=== PATIENT | female | born 1985 | race Caucasian/White ===

== ENCOUNTER → 2017-07-10 | Outpatient (CLI) | payer BC ==
[~2017-07-10] VITALS: Ht 167.6 cm; Wt 69.0 kg
[~2017-07-10] MED LIST: ENDOCET 5-3251 EACH PO; Motrin PO; PREDNISONE20 MG PO; PREFERA-OB P1 TABLET PO; VALACYCLOVIR1000 MG PO
[2017-07-10 17:41] VITALS: BP 121/68
== END | disposition home or self-care (01) ==
LOC: IVINF 15:46
DX: Z31.82 Encounter for Rh incompatibility status (principal); Z3A.28 28 weeks gestation of pregnancy
CPT/HCPCS: 96372; J2790

== ENCOUNTER 2017-10-01 21:50 | Inpatient (IN) | payer BC ==
[~2017-10-01] VITALS: Ht 162.6 cm; Wt 74.0 kg
[2017-10-01 22:13] VITALS: BP 120/81
[2017-10-01 23:33] VITALS: BP 115/77
[2017-10-02] VITALS (18 sets, daily range): BP systolic 105–137; BP diastolic 58–94
[2017-10-02 01:02] LABS: EOSINOPHIL (%) 0.5 % (0-5); EOSINOPHIL COUNT 0.1 K/uL (0-0.3); HEMATOCRIT 36.2 % (36.0-46.0); IMMATURE GRANULOCYTE (%) 0.4 % (0.0-0.7); IMMATURE GRANULOCYTE COUNT 0.1 K/uL; INSTRUMENT ABS NEUTROPHIL CT 10.7 K/uL; LYMPHOCYTE COUNT 1.9 K/uL (1.0-2.8); MCH 33.3 PG (29.0-34.0); MCHC 34.8 G/DL (30.0-36.0); MCV 95.8 FL (83-99); MEAN PLAT.VOLUME 11.3 uM^3 (9.5-12.4); MONOCYTE (%) 9.1 % (3-12); MONOCYTE COUNT 1.3 K/uL (0-0.8); NEUTROPHIL (%) 76.3 % (45-76); NEUTROPHIL COUNT 10.7 K/uL (1.8-6.4); PLATELET COUNT 153 K/uL (156-360); RBC DIS.WIDTH-CV 12.8 % (11.8-14.6); RBC DIS.WIDTH-SD 44.6 % (39-53); RED BLOOD COUNT 3.78 M/uL (3.80-5.20); WHITE BLOOD COUNT 14.1 K/uL (4.1-10.2)
[2017-10-02] MEDS ORDERED: IBUPROFEN800 MG PO (05:17)
[2017-10-03 14:53] VITALS: BP 120/69
[2017-10-04 06:55] VITALS: BP 104/53
[2017-10-04 14:35] VITALS: BP 98/55
== END 2017-10-04 18:25 | disposition home or self-care (01) | DRG 775 ==
LOC: LDRP-OP → 2WEST 21:53 → LDRP-OP 10-27 14:07
PROVIDERS: Advanced Practice Midwife
PROC: 0UQMXZZ Repair Vulva, External Approach (ICD-10-PCS; principal; 2017-10-02)
PROC: 10E0XZZ Delivery of Products of Conception, External Approach (ICD-10-PCS; principal; 2017-10-02)
PROC: 00HU33Z Insertion of Infusion Device into Spinal Canal, Percutaneous Approach (ICD-10-PCS; principal; 2017-10-02)
PROC: 3E0R3BZ Introduction of Anesthetic Agent into Spinal Canal, Percutaneous Approach (ICD-10-PCS; principal; 2017-10-02)
PROC: 0HQ9XZZ Repair Perineum Skin, External Approach (ICD-10-PCS; principal; 2017-10-02)
DX: O70.0 First degree perineal laceration during delivery (principal); O71.82 Other specified trauma to perineum and vulva; O48.0 Post-term pregnancy; O69.81X0 Labor and delivery complicated by cord around neck, without compression, not applicable or unspecified; O99.824 Streptococcus B carrier state complicating childbirth; Z3A.40 40 weeks gestation of pregnancy; Z37.0 Single live birth
CPT/HCPCS: 83030; 85025; 86850; 86870; 86900; 86901; C1755; G0378; J0595; J2540; J2790; J3010; J7120